=== PATIENT | female | born 1950 | race Caucasian/White ===

== ENCOUNTER → 2018-11-14 | Day surgery (SDC) | payer MEDICARE, BC ==
[~2018-11-14] MED LIST: AMLO5TAB10 PO; ESTR0.5T3 PO; IV RINGERS,LACTATED 1000ML 1,000 ML IV ONE; LIDOCAINE 2% PF 5 ML VIAL. ONE; LOSA25TA54 PO; PROP10TA PO; PROPOFOL 20 ML IV ONE
--- NOTE | 2018-11-14 16:50 | PDOC1 ---
History and Physical Date of Admission Date of Admission DATE: 11/14/18 TIME: 16:45 Source Source: Chart review, Patient History of Present Illness History of Present Illness 68 y/o female with food impaction; occurred about noon 11/13. Hypersalivation and unable to tolerate po since. Typically w/o dysphagia, though has had a few occurrences as now with spontaneous passage. H/o heartburn taking PPI haphazardly, not daily. No PUD, liver or pancreatic history. S/p gennaro for "sludge". Smoker. Occasional alcohol. Daily ASA (Excedrin). No D, C, H, M. Wt/appetite OK. GIFH positive for IBD in sister and brother, type unclear. No prior colonoscopy or EGD. Past Medical History Cardiovascular: HTN Psych: Anxiety Past Surgical History Past Surgical History: Cholecystectomy, Hysterectomy (with BSO), Other (breast augmentation) Family History Family History: Hypertension Social History ALCOHOL: occassional Drugs: None Current Medications Current Medications Current Medications Propofol 20 ml @ As Directed STK-MED ONCE IV ; Start 11/14/18 at 16:31; Stop 11/14/18 at 16:32; Status DC Lidocaine HCl (Lidocaine Pf 2% Vial) 5 ml STK-MED ONCE .ROUTE ; Start 11/14/18 at 16:31; Stop 11/14/18 at 16:32; Status DC Active Scripts Active Reported Amlodipine Besylate 5 Mg Tablet 5 Mg PO DAILY Losartan Potassium (Losartan Potassium) 25 Mg Tablet 25 Mg PO Allergies Allergies: Coded Allergies: codeine (Verified Allergy, Unknown, 11/14/18) ROS Review of System Otherwise negative. Physical Exam General: Alert, Oriented X3, Cooperative, No acute distress HEENT: PERRLA, EOMI Lungs: Clear to auscultation Heart: S1S2, RRR, no gallops, no murmurs Abdomen: Normal bowel sounds, Soft, No tenderness, No hepatosplenomegaly, No masses Rectal Exam: not examined Skin: No significant lesion Neuro: Normal gait, Normal speech, Strength at 5/5 X4 ext, Normal tone, Sensation intact, Cranial nerves 3-12 NL, Reflexes 2+ Psych/Mental Status: Mental status NL Vitals Vitals Vital Signs Date Time Temp Pulse Resp B/P (MAP) Pulse Ox O2 Delivery O2 Flow Rate FiO2 11/14/18 16:24 97.9 73 20 96 97.9 VTE Prophylaxis Ordered VTE Prophylaxis Devices: No VTE Pharmacological Prophylaxi: No Assessment/Plan Assessment/Plan IMP: Food impaction PLAN: PITER VAZQUEZ MD Nov 14, 2018 16:50
--- NOTE | 2018-11-14 16:54 | PDOC4 ---
PROCEDURE Procedure EGD/FB/biopsies Indication: food impaction. Meds: per anesthesia. Findings: E--Impacted meat at GEJ. Able to gently push into stomach. Under, traumatized ring, but not critically narrow. Not dilated given trauma. G--Stenotic pylorus; looks post-PUD. Could not pass. Given other issues no attempt made to dilate and pass. Antral biopsies OK. D--what bulb could be seen appeared normal. Ankita. well. IMP: Food impaction, resolved. Shatzki's ring. Acquired pyloric stenosis. Suspect prior PUD. REC: Take PPI daily. Await biopsies. F/U with me in 2-3 weeks. Will give card with contact info. PITER ASTUDILLO MD Nov 14, 2018 16:54
[2018-11-14 17:08] VITALS: BP 122/71
--- NOTE | 2018-11-18 15:07 | PATHOLOGY ---
[facility] Accession Number: [id number] . 01 Material submitted: . stomach - ANTRUM BX . 01 Clinical history: . Food bolus . 02 Diagnosis: Antrum, biopsy: - Chronic inactive gastritis. - An H. pylori immunostain is negative (A1; appropriate control). (MAP:[facility]; 11/18/2018) S 11/18/2018 0953 Local . 02 Electronically signed: . Mckinley Reid MD, Pathologist NPI- [id number] . 01 Gross description: . Received in formalin labeled "Strange, [place], antrum BX," are 2 segments of prince soft tissue measuring 0.9 x 0.3 x 0.2 cm in aggregate dimensions and ranging from 0.4 to 0.5 cm in maximum dimension. The specimen is submitted entirely in cassette A1. (TSD; 11/15/2018) TOB/TOB 11/15/2018 2137 Local . 02 Pathologist provided ICD-10: K29.50 . 02 CPT . 773565, Y38404 Specimen Comment: A courtesy copy of this report has been sent to Specimen Comment: [phone], . Specimen Comment: Report sent to / DR SEALS Performed at: 01 [facility] [place] [address], [place] [id number] MD Otis So MD Phone: [phone] Performed at: 02 [facility] [place] [address], [place] [id number] MD Tha Ceja MD Phone: [phone]
== END ==
LOC: SURG 16:27
PROVIDERS: ATTEND Internal Medicine Gastroenterology
DX: K22.2 Esophageal obstruction (principal); K29.50 Unspecified chronic gastritis without bleeding; F41.9 Anxiety disorder, unspecified; I10 Essential (primary) hypertension; Z72.89 Other problems related to lifestyle; Z88.5 Allergy status to narcotic agent; Z90.49 Acquired absence of other specified parts of digestive tract; Z90.710 Acquired absence of both cervix and uterus
CPT/HCPCS: 43239; 88305; 88342; J2001; J2704